=== PATIENT | female | born 1995 | race Caucasian/White ===

== ENCOUNTER 2023-03-17 21:11 | Emergency (ER) | payer MEDICAID ==
[~2023-03-17] VITALS: Ht 170.2 cm; Wt 64.0 kg
[2023-03-17 23:00] VITALS: BP 129/88
[2023-03-17] MEDS ORDERED: LIDOCAINE 1% 10 ML VIAL SQ ONE (23:15)
== END 2023-03-18 00:47 | disposition home or self-care (01) ==
LOC: EMS 21:13
DX: S01.81XA Laceration without foreign body of other part of head, initial encounter (principal); W01.0XXA Fall on same level from slipping, tripping and stumbling without subsequent striking against object, initial encounter; Y93.89 Activity, other specified; Y92.89 Other specified places as the place of occurrence of the external cause; Y99.8 Other external cause status
CPT/HCPCS: 99282; 12011; J3490